=== PATIENT | female | born 1980 | race Two or more races ===

== ENCOUNTER 2023-07-10 09:58 | Outpatient (CLI) | payer OTHER | END 2023-07-10 09:59 | disposition home or self-care (01) | LOC: ULT 09:58 | PROVIDERS: ATTEND Student in an Organized Health Care Education/Training Program | DX: K76.0 Fatty (change of) liver, not elsewhere classified (principal); N13.30 Unspecified hydronephrosis | CPT/HCPCS: 76700 ==